=== PATIENT | female | born 1995 | race Asian ===

== ENCOUNTER 2018-07-19 03:58 | Emergency (ER) | payer BC ==
[~2018-07-19] VITALS: Ht 162.6 cm; Wt 61.7 kg
[2018-07-19 03:58] VITALS: BP_SYST 135
[2018-07-19 04:40] VITALS: BP_SYST 135
== END 2018-07-19 04:40 ==
LOC: SED 03:58
DX: F10.129 Alcohol abuse with intoxication, unspecified (principal); V43.52XA Car driver injured in collision with other type car in traffic accident, initial encounter; Y93.89 Activity, other specified; Y92.410 Unspecified street and highway as the place of occurrence of the external cause; Y99.8 Other external cause status
CPT/HCPCS: 99283